=== PATIENT | male | born 1950 | race Caucasian/White ===

== ENCOUNTER 2018-05-05 19:09 | Emergency (ER) | payer OTHER ==
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
[2018-05-05] MEDS ORDERED: METOCLOPRAMIDE 10 MG/2 ML SDV IVP ONE (19:45)
[2018-05-05] MEDS ORDERED: NS(*) 0.9% 1000 ML BAG 1,000 ML IV ONE (19:45)
[2018-05-05 19:50] LABS: PLATELET COUNT, AUTOMATED 291 K/uL (150-450)
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
[2018-05-05 21:43] VITALS: BP 140/72
[2018-05-06] MEDS ORDERED: LEV112 PO (06:01)
== END 2018-05-05 21:59 | disposition home or self-care (01) ==
LOC: ER 19:37
DX: S06.0X0A Concussion without loss of consciousness, initial encounter (principal); V49.9XXA Car occupant (driver) (passenger) injured in unspecified traffic accident, initial encounter; Y92.410 Unspecified street and highway as the place of occurrence of the external cause
CPT/HCPCS: 70450; 72125; 85025; 96361; 96374; 99284; J2765; J7030; 82040; 82247; 82310; 82374; 82435; 82565; 82947; 84075; 84132; 84155; 84295; 84450; 84460; 84520